=== PATIENT | male | born 1955 ===

== ENCOUNTER 2021-09-30 12:15 | Inpatient (IN) | payer OTHER ==
[~2021-09-30] VITALS: Ht 170.2 cm; Wt 76.2 kg
[2021-09-30] MEDS ORDERED: NORVASC5 MG PO ×2 (14:39→14:41)
[2021-09-30] MEDS ORDERED: AVAPRO75 MG PO (14:40)
[2021-09-30] MEDS ORDERED: XANAX XR0.5 MG PO (14:41)
[2021-09-30] MEDS ORDERED: ZOLOFT50 MG PO (14:42)
[2021-09-30] MEDS ORDERED: LIPITOR20 MG PO (14:42)
[2021-09-30] MEDS ORDERED: AMBIEN5 MG PO (14:42)
[2021-10-05] MEDS ORDERED: RESTORIL30 MG (13:08)
[2021-10-05] MEDS ORDERED: LEVOBUNOLOL HCL5 ML (13:08)
[2021-10-05] MEDS ORDERED: LATANOPROST2.5 ML (13:08)
== END 2021-10-08 15:05 | disposition home or self-care (01) | DRG 330 ==
LOC: SURH 10-05 09:15 → O/R 10-05 09:15 → SURH 10-05 12:15 → SURG 10-05 14:56 → SURH 10-05 16:45 → O/R 10-05 17:05 → SURH 10-05 20:54
PROVIDERS: ADMIT Colon & Rectal Surgery; ATTEND Colon & Rectal Surgery
PROC: 0DBP4ZZ Excision of Rectum, Percutaneous Endoscopic Approach (ICD-10-PCS; 2021-10-05)
PROC: 0TQB4ZZ Repair Bladder, Percutaneous Endoscopic Approach (ICD-10-PCS; 2021-10-05)
PROC: 0WUF47Z Supplement Abdominal Wall with Autologous Tissue Substitute, Percutaneous Endoscopic Approach (ICD-10-PCS; 2021-10-05)
PROC: 0DTN4ZZ Resection of Sigmoid Colon, Percutaneous Endoscopic Approach (ICD-10-PCS; principal; 2021-10-05 16:45)
PROC: BT10ZZZ Fluoroscopy of Bladder (ICD-10-PCS; 2021-10-08)
DX: K57.20 Diverticulitis of large intestine with perforation and abscess without bleeding (principal); K92.1 Melena; N32.1 Vesicointestinal fistula; D12.6 Benign neoplasm of colon, unspecified; Z20.822 Contact with and (suspected) exposure to COVID-19; I10 Essential (primary) hypertension